=== PATIENT | male | born 2000 ===

== ENCOUNTER 2021-06-16 07:29 | Emergency (ER) | payer BC, SELFPAY | END 2021-06-16 08:27 | disposition home or self-care (01) | LOC: ERS 07:29 | DX: R07.89 Other chest pain (principal); F17.210 Nicotine dependence, cigarettes, uncomplicated | CPT/HCPCS: 71046 ==

== ENCOUNTER 2023-08-10 07:30 | Emergency (ER) | payer BC ==
[2023-08-10] MEDS ORDERED: Ketorolac Tromethamine 30 MG/ML VIAL ONE (08:44)
== END 2023-08-10 08:50 | disposition home or self-care (01) ==
LOC: ERS 07:30
DX: R07.89 Other chest pain (principal); F17.290 Nicotine dependence, other tobacco product, uncomplicated
CPT/HCPCS: 71046; 93005; 96372; J1885